=== PATIENT | male | born 1960 | race Native Hawaiian/Other Pacific Islander ===

== ENCOUNTER 2016-05-18 12:31 | Outpatient (CLI) | payer BC ==
[~2016-05-18 12:31] MED LIST: ACID CONTROL20 MG PO; BAYER CHEWABLE81 MG PO; ENALAPRIL20 MG PO; GABA300C2 PO; INSU100I2 SC; INSUINJ47 SC; LEVO0.0218 PO; LIPITOR40 MG PO; METFORMIN ER1000 MG PO; METOPROLOL25 M1 PO; NOVOLOG SC; PAXIL20 MG PO; RANI150T78 PO; TRAM50TA PO
== END 2016-05-18 19:23 | disposition home or self-care (01) ==
LOC: NM 12:31
DX: R10.11 Right upper quadrant pain (principal)
CPT/HCPCS: A9537

== ENCOUNTER 2016-07-01 13:21 | Outpatient (CLI) | payer BC | END 2016-07-01 20:20 | disposition home or self-care (01) | LOC: RAD 13:21 | DX: M25.512 Pain in left shoulder (principal) ==

== ENCOUNTER 2017-11-28 07:53 | Day surgery (SDC) | payer OTHER ==
[~2017-11-28] VITALS: Ht 165.1 cm; Wt 90.7 kg
== END 2017-11-28 10:25 | disposition home or self-care (01) ==
LOC: OR 07:53
PROC: 08RK3JZ Replacement of Left Lens with Synthetic Substitute, Percutaneous Approach (ICD-10-PCS; principal; 2017-11-28)
DX: H25.812 Combined forms of age-related cataract, left eye (principal)
CPT/HCPCS: 66984; J0171; J2250; V2632

== ENCOUNTER 2019-03-27 12:27 | Emergency (ER) | payer OTHER ==
[~2019-03-27] VITALS: Ht 172.7 cm; Wt 80.3 kg
[2019-03-27 12:27] VITALS: TEMP 97.7
[2019-03-27] MEDS ORDERED: SPIRONOLACT25 MG PO (12:37)
[2019-03-27] MEDS ORDERED: ATIVAN2 MG PO (12:38)
[2019-03-27] MEDS ORDERED: GABA300C2 PO (12:38)
[2019-03-27] MEDS ORDERED: BUDE1AER5 INH (12:38)
[2019-03-27] MEDS ORDERED: ZESTRIL40 MG PO (12:40)
[2019-03-27] MEDS ORDERED: LEVEMIR FL100 UNIT/M SC (12:41)
[2019-03-27] MEDS ORDERED: FURO40TA93 PO (12:42)
[2019-03-27] MEDS ORDERED: METO50TA63 PO (12:42)
[2019-03-27 13:10] LABS: PLATELET COUNT 258 K/uL (142-355)
[2019-03-27 13:18] LABS: POTASSIUM 4.5 mmol/L (3.6-5.2)
[2019-03-27 17:30] VITALS: BP 116/60
== END 2019-03-27 17:30 | disposition home or self-care (01) ==
LOC: ED 12:27
PROVIDERS: Family Medicine
DX: K52.89 Other specified noninfective gastroenteritis and colitis (principal); R11.0 Nausea
CPT/HCPCS: 36415; 80053; 82150; 83880; 85027; 96360; 96375; 96376; 99284; J2405; J2765

== ENCOUNTER 2019-04-18 11:52 | Emergency (ER) | payer OTHER ==
[~2019-04-18] VITALS: Ht 172.7 cm; Wt 80.3 kg
[2019-04-18 11:52] VITALS: TEMP 97.9
[~2019-04-18 11:52] MED LIST changes: +ATIVAN2 MG PO; +BUDE1AER5 INH; +FURO40TA93 PO; +LEVEMIR FL100 UNIT/M SC; +METO50TA63 PO; +SPIRONOLACT25 MG PO; +ZESTRIL40 MG PO
[2019-04-18] MEDS ORDERED: PROAIR HFA INH (12:27)
[2019-04-18 12:34] LABS: PLATELET COUNT 307 K/uL (142-355)
[2019-04-18 12:42] LABS: POTASSIUM 4.2 mmol/L (3.6-5.2); SODIUM 135 mmol/L (136-145)
[2019-04-18 17:30] VITALS: BP 163/78
== END 2019-04-18 17:50 | disposition home or self-care (01) ==
LOC: ED 11:56
PROVIDERS: Emergency Medicine
DX: R10.84 Generalized abdominal pain (principal); R07.89 Other chest pain
CPT/HCPCS: 80053; 82150; 82550; 82553; 83690; 84484; 85027; 93005; 96375; 96376; 99284; J2405; Q9963

== ENCOUNTER 2019-05-08 11:09 | Outpatient (CLI) | payer OTHER ==
[~2019-05-08 11:09] MED LIST changes: +PROAIR HFA INH
[2019-05-08 11:51] LABS: PLATELET COUNT 286 K/uL (142-355)
[2019-05-08 12:29] LABS: POTASSIUM 4.3 mmol/L (3.6-5.2)
== END 2019-05-08 22:00 | disposition home or self-care (01) ==
LOC: LABW 11:09
PROVIDERS: Internal Medicine
DX: E11.22 Type 2 diabetes mellitus with diabetic chronic kidney disease (principal); N18.3 Chronic kidney disease, stage 3 (moderate); I88.0 Nonspecific mesenteric lymphadenitis; K86.1 Other chronic pancreatitis; E53.8 Deficiency of other specified B group vitamins
CPT/HCPCS: 36415; 80053; 80061; 81000; 82150; 82306; 82330; 82550; 82570; 82607; 82746; 83036; 83690; 83735; 83970; 84100; 84155; 84439; 84443; 85027